=== PATIENT | male | born 1995 | race Caucasian/White ===

== ENCOUNTER 2025-03-04 12:19 | Emergency (ER) | payer BC, SELFPAY ==
[2025-03-04 12:23] VITALS: BP 129/93; PULSE 94; TEMP 36.7; O2SAT 97; BMI 34.0
[2025-03-04] MEDS: KETOROLAC TROMETHAMINE 60 MG/2 ML VIAL IM (13:13)
--- NOTE | 2025-03-04 13:20 | ED_ITS ---
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 this pain happened to him before but today it was more significant after he was trying to carry his daughter The patient denies any numbness tingling down his leg he denies any other symptoms of nausea vomiting or any other concerns He has been taking Percocet as well as prednisone for the last few days for pain control for his dental procedure that was recently done Related Data Previous Rx's ?Medication ?Instructions ?Recorded diclofenac sodium 75 mg 75 mg PO BID PRN pain #20 ta bs 03/04/25 tablet,delayed release famotidine 20 mg tablet (Pepcid) 20 mg PO BID #10 tabs 03/04/25 orphenadrine citrate 100 mg 100 mg PO BID PRN muscle s pasm #20 03/04/25 tablet,extended release tabs Allergies Allergy/AdvReac Type Severity Reaction Status Date / Time No Known Drug Allergies Allergy Verified 03/04/25 12:29 Review of Systems ROS Status of ROS 10 or more systems reviewed and unremark able except as noted in history and below PFSH PFSH Social History Little interest or pleasure in doing things: not at all Feeling down, depressed, or hopeless: not at all Exam Narrative Exam Narrative: Nurses notes and vital signs reviewed and patient is not hypoxic. General: Well-appearing and in no apparent distress. Skin: Warm, dry, no pallor noted. No rash. Head: Normocephalic, atraumatic. Neck: Supple, non-tender. Eye: Pupils are equal, round and EOMI. No scleral icterus. Ears, Nose, Mouth, and Throat: TM are clear, no nasal mucosal hypertrophy. Oral mucosa is dry ,no posterior oropharynx erythema, uvula is mid-line Cardiovascular: Regular Rate and Rhythm without murmur, gallop or rub. Respiratory: No accessory muscle use or respiratory distress. Lungs are clear to auscultation, no wheezing, rales or rhonchi Chest Wall: no tenderness Back: No midline thoracic or lumbar vertebral tenderness. Left paraspinal muscle tenderness. Musculoskeletal: normal ROM, no calf or popliteal tenderness, no lower extremity edema/swelling GI: Abdomen is soft, non-distended. Normal bowel sounds. No masses appreciated. No tenderness to palpation. No rebound, guarding, or rigidity noted. Neurological: A&O x4. No cranial nerve dysfunction observed. No truncal ataxia. Moves all extremities. Sensation intact. Psychiatric: Cooperative and interactive. Normal mood and affect. Constitutional Vital Signs, click to edit/add: Last Vital Signs Temp 98.1 F 03/04/25 12:23 Pulse 94 H 03/04/25 12:23 Resp 18 03/04/25 12:23 BP 129/93 H 03/04/25 12:23 Pulse Ox 97 03/04/25 12:23 Course Vital Signs Vital signs: Vital Signs Temperature 98.1 F 03/04/25 12:23 Pulse Rate 94 H 03/04/25 12:23 Respiratory Rate 18 03/04/25 12:23 Blood Pressure 129/93 H 03/04/25 12:23 Pulse Oximetry 97 03/04/25 12:23 Temperature 98.1 F 03/04/25 12:23 Pulse Rate 94 H 03/04/25 12:23 Respiratory Rate 18 03/04/25 12:23 Blood Pressure 129/93 H 03/04/25 12:23 Pulse Oximetry 97 03/04/25 12:23 Medical Decision Making [facility] Narrative Medical decision making narrative: The patient have no alarming symptoms with his back he was started on Voltaren in addition to Norflex as a muscle relaxant Instructed to make sure that he is not going to take the Percocet with the Norflex to avoid side effect Patient also to avoid carrying anything heavy more than 10 pounds and bending more than 90 degrees The patient is to follow up with primary care physician in next 2-3 days or to return to the emergency department should any of the signs or symptoms worsen or new symptoms develop. The patient agrees with the following Diagnosis and Treatment plan and the patient will be discharged home. Discharge Plan Discharge Chief Complaint: Back Pain/Injury Clinical Impression: Strain of lumbar region Patient Disposition: Home, Self-Care Time of Disposition Decision: 13:21 Condition: Good Mode of Transportation: Private Vehicle Prescriptions / Home Meds: New diclofenac sodium 75 mg tablet,delayed release (DR/EC) 75 mg PO BID PRN (Reason: pain) Qty: 20 0RF famotidine [Pepcid] 20 mg tablet 20 mg PO BID Qty: 10 0RF orphenadrine citrate 100 mg tablet extended release 100 mg PO BID PRN (Reason: muscle spasm) Qty: 20 0RF Print Language: Wolof Instructions: Back Pain (ED) Discharge Date/Time: 03/04/25 13:38
== END 2025-03-04 13:38 | disposition home or self-care (01) ==
LOC: ER 13:44
PROVIDERS: Emergency Provider Emergency Medicine
DX: S39.012A Strain of muscle, fascia and tendon of lower back, initial encounter (principal); X58.XXXA Exposure to other specified factors, initial encounter
CPT/HCPCS: 96372; 99284; J1885